=== PATIENT | male | born 1995 | race Two or more races ===

== ENCOUNTER → 2024-06-14 | Emergency (ER) | payer OTHER ==
[~2024-06-14] VITALS: Ht 175.3 cm; Wt 77.1 kg
[~2024-06-14] MED LIST: DICLOFENAC SODI75 MG PO; KETOROLAC TROMETHAMINE 60 MG VIAL IM ONE; LIDOCAINE HCL 1% 10ML VIAL PERCUT ONE
== END | disposition home or self-care (01) ==
LOC: ER 20:44
DX: S01.81XA Laceration without foreign body of other part of head, initial encounter (principal); S01.80XA Unspecified open wound of other part of head, initial encounter; S09.90XA Unspecified injury of head, initial encounter; V49.88XA Car occupant (driver) (passenger) injured in other specified transport accidents, initial encounter; Y93.89 Activity, other specified; Y92.89 Other specified places as the place of occurrence of the external cause; Y99.8 Other external cause status

== ENCOUNTER 2024-06-23 16:22 | Emergency (ER) | payer OTHER ==
[~2024-06-23] VITALS: Ht 175.3 cm; Wt 77.1 kg
[~2024-06-23 16:22] MED LIST changes: -KETOROLAC TROMETHAMINE 60 MG VIAL IM ONE; -LIDOCAINE HCL 1% 10ML VIAL PERCUT ONE
[2024-06-23] MEDS ORDERED: TRAMADOL HCL 50 MG TABLET PO ONE (17:15)
== END 2024-06-23 17:39 | disposition home or self-care (01) ==
LOC: ER 16:23
DX: Z48.02 Encounter for removal of sutures (principal)

== ENCOUNTER 2024-09-13 18:56 | Emergency (ER) | payer OTHER ==
[~2024-09-13] VITALS: Ht 175.3 cm; Wt 81.6 kg
[2024-09-13] MEDS ORDERED: KETOROLAC TROMETHAMINE 60 MG VIAL IM STA (21:03)
[2024-09-13] MEDS ORDERED: OxyCODONE HCL/APAP UD (PERCOCET) PO STA (21:04)
== END 2024-09-13 22:44 | disposition home or self-care (01) ==
LOC: ER 18:58
DX: S93.401A Sprain of unspecified ligament of right ankle, initial encounter (principal); W01.0XXA Fall on same level from slipping, tripping and stumbling without subsequent striking against object, initial encounter; Y93.89 Activity, other specified; Y92.018 Other place in single-family (private) house as the place of occurrence of the external cause

== ENCOUNTER 2025-01-22 06:48 | Emergency (ER) | payer OTHER ==
[~2025-01-22] VITALS: Ht 175.3 cm; Wt 79.4 kg
[2025-01-22] MEDS ORDERED: PERCOCET 5-3251 EACH PO (07:25)
[2025-01-22] MEDS ORDERED: LIDOCAINE HCL 1%/EPINEPHRINE 20ML VIAL IJ ONE (09:00)
[2025-01-22] MEDS ORDERED: POVIDONE-IODINE SCRUB 118 ML BOTT TOP ONE (09:00)
[2025-01-22] MEDS ORDERED: TETANUS & DIPHTHERIA TOX,ADULT 0.5 ML VIAL IM ONE (09:00)
[2025-01-22] MEDS ORDERED: LIDOCAINE HCL 1% 10ML VIAL ONE (09:02)
== END 2025-01-22 11:37 | disposition home or self-care (01) ==
LOC: ER 06:49
DX: S61.224A Laceration with foreign body of right ring finger without damage to nail, initial encounter (principal); S01.121A Laceration with foreign body of right eyelid and periocular area, initial encounter; Y08.89XA Assault by other specified means, initial encounter; Y93.89 Activity, other specified; Y92.89 Other specified places as the place of occurrence of the external cause
CPT/HCPCS: 12001; 12011; 73140; 90471; 90714; 99283; J1670

== ENCOUNTER → 2025-02-09 | Emergency (ER) | payer OTHER ==
[~2025-02-09] VITALS: Ht 175.3 cm; Wt 81.6 kg
[~2025-02-09] MED LIST changes: +CLINDAMYCIN PHOSPHATE 150 MG/ML (300mg) ONE; +CLINDAMYCIN PHOSPHATE 150 MG/ML (600mg) IM STA; +PERCOCET 5-3251 EACH PO
== END | disposition home or self-care (01) ==
LOC: ER 18:50
DX: T14.8XXA Other injury of unspecified body region, initial encounter (principal); Z48.02 Encounter for removal of sutures
CPT/HCPCS: 96372; 99282; J3490

== ENCOUNTER 2025-02-13 22:27 | Emergency (ER) | payer OTHER ==
[~2025-02-13] VITALS: Ht 175.3 cm; Wt 79.4 kg
[~2025-02-13 22:27] MED LIST changes: -CLINDAMYCIN PHOSPHATE 150 MG/ML (300mg) ONE; -CLINDAMYCIN PHOSPHATE 150 MG/ML (600mg) IM STA
== END 2025-02-13 23:30 | disposition home or self-care (01) ==
LOC: ER 22:27
DX: Z48.02 Encounter for removal of sutures (principal)